=== PATIENT | male | born 1990 | race Caucasian/White ===

== ENCOUNTER 2020-07-22 10:48 | Emergency (ER) | payer OTHER ==
[~2020-07-22] VITALS: Ht 167.6 cm; Wt 117.0 kg
== END 2020-07-22 11:53 | disposition home or self-care (01) ==
LOC: ER 10:48
DX: J31.2 Chronic pharyngitis (principal)

== ENCOUNTER → 2021-06-30 | Emergency (ER) | payer OTHER ==
[~2021-06-30] VITALS: Ht 165.1 cm; Wt 127.0 kg
== END | disposition home or self-care (01) ==
LOC: ER 23:30
DX: U07.1 COVID-19 (principal)

== ENCOUNTER 2022-03-23 06:09 | Emergency (ER) | payer OTHER ==
[~2022-03-23] VITALS: Ht 165.1 cm; Wt 127.0 kg
== END 2022-03-23 09:52 | disposition home or self-care (01) ==
LOC: ER 06:09
DX: R00.2 Palpitations (principal); Z20.822 Contact with and (suspected) exposure to COVID-19